=== PATIENT | male | born 1945 | race Caucasian/White ===

== ENCOUNTER → 2016-11-01 | Outpatient (CLI) | payer OTHER | LOC: MMPC 11:11 | PROVIDERS: ATTEND Internal Medicine | DX: I10 Essential (primary) hypertension (principal); C61 Malignant neoplasm of prostate; G81.91 Hemiplegia, unspecified affecting right dominant side | CPT/HCPCS: 99214; G0463 ==

== ENCOUNTER 2017-06-06 17:31 | Inpatient (IN) ==
--- NOTE | 2017-06-06 18:01 | PDOC ---
Neuro Symptoms / Deficit HPI - General Chief Complaint: Neurological Complaints Stated Complaint: weakness, "can't think" Date Seen by Provider: 06/06/17 Time Seen by Provider: 17:56 Source: POSITIVE: Patient, Other (Friend) Exam Limitations: POSITIVE: No limitations Nurse's Notes Reviewed & Considered: Yes - History of Present Illness Initial Comments: This is a 72-year-old male who presents to the emergency department with a friend with a history of worsening neurologic symptoms over the past 24-36 hours. According to his friend, the patient was "out of it" most of yesterday, but has improved today. The patient states that he has noticed some changes in his vision, and some minor increased weakness in his right leg, his friend has noticed that his speech is much more slurred than normal, and he seems to have trouble swallowing. 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 That stroke also gave him hemianopsia. No headache, no other new neurologic findings. - Patient Home Medications Home Medications: Home Medications Aspirin/Caffeine [Anacin 400-32 Mg Tablet] 2 ea PO 3-4XD #240 tab 09/05/15 Lisinopril 1 tab ORAL QD #90 tab 11/01/16 - Patient Allergies Allergies/Adverse Reactions: Allergies 3 Allergy/AdvReac Type Severity Reaction Status Date / Time No Known Drug Allergies Allergy NOT Verified 06/06/17 17:49 APPLICABLE ROS - Limitations ROS Limitations: No Limitations Constitution: DENIES: Chills, Fever Cardiovascular: DENIES: Chest Pain Respiratory: REPORTS: Denies Resp Symptoms Neurological: REPORTS: Difficulty Walking, Dysphagia, Weakness, Other ( Worsening of baseline slurred speech). DENIES: Headache, Dizziness, Seizure Activity Gastrointestinal: DENIES: Nausea, Vomitting Musculoskeletal: REPORTS: Denies MS Symptoms Genitourinary: REPORTS: Denies Symptoms Eyes: REPORTS: Vision Changes ENT: REPORTS: Denies Symptoms Neuro Symptoms / Deficit Exam - General Appearance General Appearance: POSITIVE: No Acute Distress, Alert - HEENT HEENT: POSITIVE: Eyes Inspection Nml, PERRL, Other (Patient has baseline hemianopsia, is not really able to follow my finger with his eyes due to that vision issue.). NEGATIVE: Scleral Icterus - Neuro / Psych Higher Functions: POSITIVE: Oriented to Person, Oriented to Place, Oriented to Time, Normal Cognition, Appropriate Mood, Appropriate Affect, Speech Abnormalities Cranial Nerves: POSITIVE: Dysarthria. NEGATIVE: Facial Palsy Peripheral Exam: POSITIVE: Sensation Normal, Weakness (Right sided weakness both arm and leg) - Respiratory Respiratory: POSITIVE: No Respiratory Distress, Breath Sounds Normal - Cardiovascular Cardiovascular: POSITIVE: Regular Rate & Rhythm, Heart Sounds Normal - Abdomen Additional Abdominal Details: Abdomen soft, nontender, nondistended, no organomegaly. Active bowel sounds. - Skin Skin: POSITIVE: Warm, Dry, No Rash Neuro Symptom/Deficit Progress - Results Reviewed by me CBC and BMP: 06/06/17 18:19 06/06/17 18:19 - Patient's Progress Re-Examine Time:: 21:33 (stable) Status: POSITIVE: Unchanged MDM / ED Course: Emergency room course: After initial evaluation, an IV was started, blood was drawn, and normal saline was infused. After initial lab results reviewed, a noncontrast CT was head was ordered instead of the no acute stroke protocol due to his poor kidney function. That nonconstant CT of his head revealed no acute stroke. Reviewing his previous labs, his last labs were done in 2010, and his creatinine has risen from 1.4-2.1. Due to the concerns about increased slurred speech, and swallowing difficulty, as well as the worsening kidney function, I believe the patient needs to be admitted for further evaluation treatment. This was discussed with Dr. Fabian and he will admit the patient for further evaluation treatment Patient Care Time - Estimated PCT Patient Care Time (In Minutes): 20 Vital Signs - Recent Vital Signs Vital Signs: Vital Signs (Last 8 hours) Temp Pulse Resp BP Pulse Ox 06/06/17 17:36 97.9 F 75 16 98/61 97 Discharge Clinical Impression: Altered mental status, Dehydration Discharge Disposition: Admit to Inpatient Condition: Fair Follow Up With: NETO LOPEZ [Primary Care Provider] - Date Decision to Admit to Inpatient: 06/06/17 Time Decision to Admit to Inpatient: 21:36
[2017-06-06] MEDS ORDERED: NORMAL SALINE 10 ML SYRINGE FLUSH IVP PRN (18:12)
[2017-06-06 18:23] LABS: Hematocrit [HCT] 34.3 % (42.0-52.0); Hemoglobin [HGB] 11.5 g/dL (14.0-18.0); MEAN CORPUSCULAR VOLUME 99 FL (80-90); RED BLOOD COUNT 3.47 10^6/uL (4.70-6.10)
[2017-06-06 18:24] LABS: BASOPHILS # (AUTO) 0.01 10*3/UL; BASOPHILS % (AUTO) 0.3 % (0-1); EOSINOPHILS # (AUTO) 0.09 10*3/UL; LYMPHOCYTES # (AUTO) 0.56 10*3/uL; MEAN CORPUSCULAR HEMOGLOBIN 33.1 PG (27-31); MEAN CORPUSCULAR HGB CONC 33.4 g/dL (33-37); MEAN PLATELET VOLUME 7.4 FL (7.4-12.2); MONOCYTES # (AUTO) 0.23 10*3/UL (0.3-0.8); MONOCYTES % (AUTO) 5.3 % (5-15); NEUTROPHILS # (AUTO) 3.46 10*3/UL; NEUTROPHILS % (AUTO) 79.5 % (50-80); PLATELET MORPHOLOGY COMMENT NORMAL MORPHOLOGY (NORM); RBC MORPHOLOGY COMMENT NORMAL MORPHOLOGY (NORM); WBC MORPHOLOGY COMMENT NORMAL MORPHOLOGY (NORM)
[2017-06-06 18:33] LABS: BLOOD UREA NITROGEN 36 mg/dL (7-22); BUN/CREATININE RATIO 17.14 (6-20)
[2017-06-06] MEDS ORDERED: Sodium Chloride 0.9% 1,000 ML PRIMARY IV ONE (18:48)
[2017-06-06 19:11] LABS: Erythrocyte Sediment Rate 7 MM/HR (0-15)
--- NOTE | 2017-06-06 19:44 | DI ---
CT Head WO Contrast,06/06/2017 6:02 PM: Clinical History: Possible stroke. Previous Exam: None at this facility. Findings: Multiple helically acquired CT images are obtained through the brain without contrast, and demonstrat e diffuse age-related volume loss. There is no mass, hemorrhage or midline shift. The surrounding sof t tissue and osseous structures are unremarkable. Impression: Diffuse age-related volume loss without acute intracranial pathology. Note: CT can be insensitive to stroke in the first 24 hours.
--- NOTE | 2017-06-06 21:59 | PDOC ---
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 he did mention that he fell also yesterday. He could not tell me exactly the circumstances of the fall. Evaluation in the ER revealed a creatinine of 2.1 the last creatinine he had was 2011 and was 1.4. Because of the weakness and the renal failure was admitted. Patient friends seems to give more information and sometimes he contradicts what they saying. What they said that they noticed that he's been getting weaker the last 6 weeks. Usually his friend take him to a meeting every Tuesday and he is been putting that off. They noticed that he is weaker on the right side compared to before. He uses a cane or walker at his house. Yesterday he couldn't tell me how he fell but he fell and it took him a while to get up. He denied chest pain or shortness of breath. Denied dizziness. Or lightheadedness. Past Medical History Medical History: 1. 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 2. Adenocarcinoma the prostate with history of radiation therapy March 2008 followed up by androgen ablation treatment with Lupron then. 3. Hypertension Surgical History: 1. Carpal tunnel release Family History: Reviewed an Not Pertinent Past Social History: He said he smoked many years ago, doesn't drink, no drugs. Lives here in [place] friends help him and check on him. He gets Meals on Wheels. No children of his own. Tobacco Use: Never Smoker In the Past 12 Months, Have Used or Abuse Any of the Following Substance: None Alcohol Use: None Medication / Allergies Home Medications: Home Medications Medication Instructions Recorded Confirmed Type Aspirin/Caffeine [Anacin 400-32 Mg 2 ea PO 3-4XD #240 tab 09/05/15 06/06/17 History Tablet] Lisinopril 1 tab ORAL QD #90 tab 11/01/16 06/06/17 Rx Allergies/Adverse Reactions: Allergies 3 Allergy/AdvReac Type Severity Reaction Status Date / Time No Known Drug Allergies Allergy NOT Verified 06/06/17 17:49 APPLICABLE Review of Systems - Review of Systems All Systems: Reviewed & No Additional Complaints Except as Stated Exam - General General Appearance: No Acute Distress, Cooperative - Head Head Exam: Normal Inspection - Eye Eye Exam: POSITIVE: Normal Appearance - ENT ENT Exam: POSITIVE: Mucous Membranes Dry - Neck Neck Exam: Normal Inspection - Respiratory Respiratory Exam: POSITIVE: Clear to Auscultation - Bilaterally - Cardiovascular Cardiovascular Exam: POSITIVE: RRR - GI/Abdominal GI/Abdominal Exam: POSITIVE: Normal Bowel Sounds, Non Tender, Non Distended, Soft, No Organomegaly - Rectal Rectal Exam: POSITIVE: Deferred - External Exam: POSITIVE: Deferred - Extremities Extremities Exam: POSITIVE: Normal Inspection - Back Back Exam: POSITIVE: Normal Inspection - Neurological Neurological Exam: POSITIVE: Alert, CN II-XII Intact Additional Neurological Exam Details: There is slight facial droop on the right. He had right-sided weakness. According to the friend he seems to be weaker than before. Tone seemed to be increased on the right. He's also though weaker on the left. Reflexes symmetrical. Babinski is up on the right. He was close to the day, he knew the month and close to the year he thought it was 2017. He had trouble counting backwards from 10. He said he had problem with his memory for recent events since he had the stroke but he can remember old past events. - Psychiatric Psychiatric Exam: POSITIVE: Normal Affect - Integumentary Integumentary Exam: POSITIVE: Normal Color Results - Labs CBC and BMP: 06/06/17 18:19 06/06/17 18:19 - Imaging Status: Report Reviewed by Me (CT head showed Diffuse age-related volume loss without acute intracranial pathology.) Assessment and Plan - Patient Problems (1) Renal failure Current Visit: Yes Status: Acute Comment: Not sure whether this is acute or chronic. We will give him a trial of fluid he seemed to be on the dehydrated side and will repeat labs in the morning. Will do an ultrasound of his kidneys. will check PSA Code(s): N19 - Unspecified kidney failure (2) Weakness Current Visit: Yes Status: Acute Comment: The friend thinks that he is weaker on the right side compared to what it was before. Will do an MRI of his brain. Continue aspirin. will ask PT and OT to work with him. Code(s): R53.1 - Weakness (3) Hypertension Current Visit: Yes Status: Acute Comment: He has a history of hypertension but because of the renal failure and borderline blood pressure I think we'll hold lisinopril for now give fluid repeat labs in the morning. And watch his blood pressure Code(s): I10 - Essential (primary) hypertension (4) DVT prophylaxis Current Visit: Yes Status: Acute Comment: will start him on heparin (5) Anemia Current Visit: Yes Status: Acute Comment: there is mild anemia, MCV is elvated will check B12 and folate. Code(s): D64.9 - Anemia, unspecified
[2017-06-06] MEDS ORDERED: LIDOCAINE W/ SODIUM BICARB 0.5 ML SYR SUBD PRN (22:40)
[2017-06-06] MEDS ORDERED: ONDANSETRON 4 MG/2 ML VIAL IVP PRN (22:40)
[2017-06-06] MEDS: NORMAL SALINE 10 ML SYRINGE FLUSH IVP PRN (23:04)
[2017-06-06] MEDS: Sodium Chloride 0.9% 1,000 ML PRIMARY IV SCH (23:04)
[2017-06-06] MEDS ORDERED: HEPARIN 5000 UNIT/1 ML SUBCUT SCH (23:15)
[2017-06-07] MEDS: Sodium Chloride 0.9% 500 ML PRIMARY IV SCH ×3 (07:50→14:43)
[2017-06-07 07:55] LABS: SERUM ALBUMIN 2.5 g/dL (3.5-4.8)
[2017-06-07 07:56] LABS: BLOOD UREA NITROGEN 32 mg/dL (7-22); BUN/CREATININE RATIO 18.82 (6-20)
--- NOTE | 2017-06-07 08:33 | PDOC(PROG) ---
Date and Time of Service: 06/07/2017 8:29 AM Interval History: Subjective Patient is denying new symptoms. He still failed weak. There is no cough, no pain. No shortness of breath. Objective : Data - Labs CBC and BMP: 06/07/17 07:10 06/07/17 07:10 Objective : Exam - General General Appearance: No Acute Distress, Cooperative - Head Head Exam: Normal Inspection - Eye Eye Exam: Normal Appearance - ENT ENT Exam: Normal Exam - Neck Neck Exam: Normal Inspection - Respiratory Respiratory Exam: Clear to Auscultation - Bilaterally - Cardiovascular Cardiovascular Exam: RRR - GI/Abdominal GI/Abdominal Exam: Normal Bowel Sounds, Non Tender, Non Distended, Soft - Rectal Rectal Exam: Deferred - External Exam: Deferred - Back Back Exam: Normal Inspection - Neurological Neurological Exam: Alert Additional Neurological Exam Details: Slight facial droop. Right-sided weakness unchanged. - Integumentary Additional Integumentary Exam Details: He has a scab on the right fifth toe. Assessment and Plan - Patient Problems (1) Renal failure Current Visit: Yes Status: Acute Comment: As I said last night it is not clear whether this is acute or chronic we'll continue with hydration his creatinine is better at 1.7. However his blood pressure is lower today. We gave him a bolus of fluid will do a blood culture and start antibiotics. Code(s): N19 - Unspecified kidney failure (2) Weakness Current Visit: Yes Status: Acute Comment: Probably multifactorial. He will have a an MRI to complete the workup. Code(s): R53.1 - Weakness (3) Hypertension Current Visit: Yes Status: Acute Comment: Continue holding his lisinopril. Code(s): I10 - Essential (primary) hypertension (4) DVT prophylaxis Current Visit: Yes Status: Acute Comment: We put him on heparin (5) Anemia Current Visit: Yes Status: Acute Comment: We did send for ferritin and B12 folate Code(s): D64.9 - Anemia, unspecified (6) Hypotension Current Visit: Yes Status: Acute Comment: Blood pressure dropped this morning. We'll give him fluid boluses will continue holding the lisinopril. Will do a blood culture UA was ordered but he did not give a sample yet and will start him with antibiotics I did a chest x-ray and I don't see clear-cut infiltrate we will see what the radiologist thinks. We'll start him on antibiotics until we have culture result Code(s): I95.9 - Hypotension, unspecified
[2017-06-07 08:47] LABS: BASOPHILS % (AUTO) 0.3 % (0-1); EOSINOPHILS % (AUTO) 6.5 % (0-8); Hematocrit [HCT] 29.1 % (42.0-52.0); Hemoglobin [HGB] 9.6 g/dL (14.0-18.0); MEAN CORPUSCULAR HEMOGLOBIN 32.6 PG (27-31); MEAN CORPUSCULAR VOLUME 99 FL (80-90); MEAN PLATELET VOLUME 7.6 FL (7.4-12.2); MONOCYTES % (AUTO) 8.2 % (5-15); NEUTROPHILS % (AUTO) 55.8 % (50-80); RED BLOOD COUNT 2.94 10^6/uL (4.70-6.10)
[2017-06-07 08:48] LABS: BASOPHILS # (AUTO) 0.01 10*3/UL; EOSINOPHILS # (AUTO) 0.16 10*3/UL; LYMPHOCYTES # (AUTO) 0.72 10*3/uL; NEUTROPHILS # (AUTO) 1.38 10*3/UL; PLATELET MORPHOLOGY COMMENT NORMAL MORPHOLOGY (NORM); RBC MORPHOLOGY COMMENT NORMAL MORPHOLOGY (NORM); WBC MORPHOLOGY COMMENT NORMAL MORPHOLOGY (NORM)
[2017-06-07] MEDS: Meropenem Inj 1 GM in Sodium Chloride 0.9% 100 ML IV SCH ×2 (09:04→21:13)
[2017-06-07] MEDS: Sodium Chloride 0.9% 1,000 ML PRIMARY IV SCH ×2 (09:05→17:11)
[2017-06-07] MEDS: Potassium Chloride Tab 10 MEQ TAB PO SCH ×2 (09:58→21:13)
[2017-06-07] MEDS: ASPIRIN 325 MG EC TABLET PO SCH (09:59)
[2017-06-07] MEDS: Multivitamin Tab 1 TAB PO SCH (09:59)
[2017-06-07] MEDS: HEPARIN 5000 UNIT/1 ML SUBCUT SCH ×2 (10:04→16:44)
[2017-06-07 10:26] LABS: BILIRUBIN,URINE NEGATIVE (NEG); CLARITY,URINE CLEAR (CLEAR); COLOR,URINE YELLOW (Y); GLUCOSE, URINE (UA) NEGATIVE (NEG); NITRATE,URINE NEGATIVE (NEG); OCCULT BLOOD,URINE MODERATE (NEG); PROTEIN,URINE NEGATIVE (NEG); UROBILINOGEN,URINE 0.2 EU/dL (0.2)
[2017-06-07 10:35] LABS: RBC,URINE 20-30 /hpf; URINE SAMPLE TYPE CLEAN CATCH URINE; WBC,URINE 0-1
--- NOTE | 2017-06-07 17:07 | OT.PROG ---
Progress Note Progress Note: S: pt stated he would like some shorts, he reported that his stroke happened about 20 yrs ago. O: pt was seen in his room and completed LE dressing with mod Ind as it just took him longer to complete due to decrease function of R side. He then stood and completed transfer to w/c approx 5 ft with CGa for safety. He transferred downstairs in w/c and completed 5 1/2 min on arm bike with using BUE's half of time and only L the other half. He then transferred back to w/ with cGA and copleted exercises with RTB in rows, shoulder ext, bicep flex, and hor abd x15 with BUE's. PT took over treatment at this point. A: pt's uses his R affected arm as much as he can but is still limited by strength and ROM. Pt may continue to benefit from therapy to increase overall activity tolerance during transfers. P: continue per pOC.
--- NOTE | 2017-06-07 17:38 | PT.PROG ---
Progress Note Progress Note: Thank you for the referral of PTNhan Pelayo was seen on 06/07/2017 following a fall due to elevated weakness the pt. has been experiencing. SUBJECTIVE: The pt. is a 72 y/o male who lives at home alone in his single story home. The pt. states he suffered a CVA 20 years ago but was able to manage his symptoms of R sided weakness and visual issues. The pt. stated his balance was on the decline prior to his fall and that he used a gayle-walker and cane at home. The goals are to return home with as much function as possible. PAST MEDICAL HISTORY: Relevant PMH for the pt. include: weakness, renal issues, and previous CVA. OBJECTIVE FINDINGS: The pt. is alert and oriented to setting upon PT arrival. The pt. sitting upright in his wheelchair as he finished OT. The pt. agreed to therapy and had his IV in. The pt. presents with poor kyphotic posturing and is slumps forward while sitting. Pt. reports inabiity to see on the R field in both eyes. Ocular tracking is limited and slow, but pt. can follow PT finger. No axatia noted with finger to nose test, although pain in L extremity was noted. Pt. was able to follow simple 2 step commands. No issues with understands or expression noted. The pt. is able to stand with contact guard using his 4 point cane. The pt. was able to AMB 20 ft. with contact quard. The pt. has flexor synergy and increased tone on the R arm, PROM is limited due to increased tone and AROM is severely limited. The use in the R UE is minimal, the pt. can use it to balance with his walker. R leg also has increased tone, but limb is usable. MMT of the R limb is 4/5 in all movements. L UE is weak, but functional. PROM is WNL and AROM is limited in flexion and abduction. Pain was experienced as pt. raised his arm. ASSESSMENT: The pt. presents with decreased function on his R side from a stroke the pt. suffered 20 years ago. Pt. was able to manage with persistent symptomes from the stroke for 20 years. The pt. has issues with R sided weakness and pain in his L shoulder. The reason for the fall was unclear, but the pt's balance was on the decline prior to admittance to the hospital. The pt. has fair rehab potential due to his previous stroke symptoms and his lack of support. However, he does currently AMB and transfer well for his situation. The pt. will benefit from skilled therapy to increase function/ROM/strength s and generalized strength and balance activity to help the pt. thrive. Problem List: 1. Weakness (especially in the R) 2. Decreased Function 3. Pain 4. Visual deficits 5. Lack of support. Short-term Goals: 1. The pt. will be independent with bed mobility and transfers prior to discharge. 2. The pt. will be fit with and become accustomed to least restrictive assistive device. Long-term Goals: The pt. will be able to AMB 500ft. with proper assistive device. Treatment Plan: The pt. will be seen BID during the week and once a day on the weekends until discharge. Inpatient Initial Eval: The initial evaluation was completed followed by AMB with gayle-walker. Respectfully Submitted, Eliseo Dahl, VON Daniel PT [facility] [address], [facility]
--- NOTE | 2017-06-07 18:27 | DI ---
XR CXR 1VW,06/07/2017 7:35 AM: Clinical History: Shortness of breath. Previous Exam: None at this facility. Findings: A single frontal radiograph of the chest is obtained, and demonstrate clear lungs. The cardiomediasti num and bony thorax are unremarkable. Overlying EKG leads are seen. Impression: No acute cardiopulmonary disease.
--- NOTE | 2017-06-07 20:14 | DI ---
US Retroperitoneum,06/07/2017 8:00 AM: Clinical History: Renal failure. Previous Exam: CT abdomen pelvis performed November 23, 2007 Findings: Multiple grayscale and color Doppler sonographic images are obtained through the retroperitoneum, and demonstrate a normal-appearing right kidney measuring 9.8 cm in length without hydronephrosis nor ne phrolithiasis. There are multiple simple renal cyst noted the largest measures 6.4 cm in diameter. The left kidney measures 10.5 cm in length also without hydronephrosis. The left kidney contains a few parenchymal calcifications. The urinary bladder measured a volume of 175 cc. Both ureteral jets were identified. Impression: No obstructive uropathy.
--- NOTE | 2017-06-07 20:47 | DI ---
MRI Brain WO Contrast,06/07/2017 8:00 AM: Clinical History: Worsening right-sided weakness. Previous Exam: CT head performed June 06, 2017 Findings: Multiplanar MR images are obtained through the brain without contrast, and demonstrates diffuse age-r elated volume loss with enlarged lateral ventricles. There is no abnormally restricted diffusion. There are a few areas of increased T2 and FLAIR signal throughout the subcortical white matter. There is no mass, hemorrhage or midline shift. Intraorbital structures and paranasal sinuses are unremarkable. Impression: No acute intracranial pathology.
[2017-06-08] MEDS: HEPARIN 5000 UNIT/1 ML SUBCUT SCH ×3 (00:12→17:49)
[2017-06-08] MEDS: Sodium Chloride 0.9% 1,000 ML PRIMARY IV SCH ×4 (00:14→09:06)
[2017-06-08 06:50] LABS: BLOOD UREA NITROGEN 27 mg/dL (7-22); RED BLOOD COUNT 2.89 10^6/uL (4.70-6.10)
[2017-06-08 06:51] LABS: BAND NEUTROPHILS % 1 % (0-10); Hemoglobin [HGB] 9.3 g/dL (14.0-18.0); MEAN CORPUSCULAR HEMOGLOBIN 32.2 PG (27-31); MEAN CORPUSCULAR HGB CONC 32.1 g/dL (33-37); MEAN CORPUSCULAR VOLUME 100.3 FL (80-90); NEUTROPHILS % (MANUAL) 51 % (50-80); PLATELET MORPHOLOGY COMMENT NORMAL MORPHOLOGY (NORM); RBC MORPHOLOGY COMMENT NORMAL MORPHOLOGY (NORM); WBC MORPHOLOGY COMMENT NORMAL MORPHOLOGY (NORM)
[2017-06-08 06:52] LABS: BASOPHILS % (MANUAL) 2 % (0-1); EOSINOPHILS % (MANUAL) 3 % (0-8); MONOCYTES % (MANUAL) 9 % (0-12)
--- NOTE | 2017-06-08 08:16 | PDOC(PROG) ---
Date and Time of Service: 06/08/2017 8:11 AM Interval History: Subjective He feels better, still weak though, denying new symptoms. Objective : Data - Labs CBC and BMP: 06/08/17 06:13 06/08/17 06:13 Objective : Exam - General General Appearance: No Acute Distress, Cooperative - Head Head Exam: Normal Inspection - Eye Eye Exam: Normal Appearance - ENT ENT Exam: Normal Exam - Neck Neck Exam: Normal Inspection - Respiratory Respiratory Exam: Clear to Auscultation - Bilaterally - Cardiovascular Cardiovascular Exam: RRR - GI/Abdominal GI/Abdominal Exam: Normal Bowel Sounds, Non Tender, Non Distended, Soft, No Organomegaly - Rectal Rectal Exam: Deferred - External Exam: Deferred - Extremities Extremities Exam: Normal Inspection - Back Back Exam: Normal Inspection - Neurological Neurological Exam: Alert, CN II-XII Intact, Speech Intact / Clear Additional Neurological Exam Details: *Right-sided weakness she is old. He seems to be generally weak. As the left side is also weak. - Psychiatric Psychiatric Exam: Normal Affect Assessment and Plan - Patient Problems (1) Renal failure Current Visit: Yes Status: Acute Comment: hard to say whether this is acute or chronic. May be chronic. I think we'll start cutting back on his fluid and see whether we can take him off the fluid. Code(s): N19 - Unspecified kidney failure (2) Weakness Current Visit: Yes Status: Acute Comment: Continue PT and OT Code(s): R53.1 - Weakness (3) Hypertension Current Visit: Yes Status: Acute Comment: His blood pressure is on the lower side so we are holding his lisinopril. Code(s): I10 - Essential (primary) hypertension (4) DVT prophylaxis Current Visit: Yes Status: Acute Comment: He is on heparin (5) Anemia Current Visit: Yes Status: Acute Comment: Both B12 and folate are normal. He has leukopenia and anemia maybe has a bone marrow disorder this need to be looked at later on as an outpatient if it persist. Code(s): D64.9 - Anemia, unspecified (6) Hypotension Current Visit: Yes Status: Acute Comment: Blood pressure stable. Reason is unclear. I think we'll start cutting back on his fluid as his blood pressure seem to be improving. We did start him on antibiotics continue until we have culture results Code(s): I95.9 - Hypotension, unspecified (7) Normal anion gap metabolic acidosis Current Visit: Yes Status: Acute Comment: This may be secondary to renal failure or renal tubular acidosis. Will put him on sodium bicarbonate. Code(s): E87.2 - Acidosis
[2017-06-08] MEDS: Meropenem Inj 1 GM in Sodium Chloride 0.9% 100 ML IV SCH ×2 (09:04→20:26)
[2017-06-08] MEDS: Multivitamin Tab 1 TAB PO SCH (09:05)
[2017-06-08] MEDS: ASPIRIN 325 MG EC TABLET PO SCH (09:05)
[2017-06-08] MEDS: Sodium Bicarbonate Tab 650 MG TAB PO SCH ×2 (09:05→20:28)
[2017-06-08] MEDS: Potassium Chloride Tab 10 MEQ TAB PO SCH ×2 (09:05→20:28)
--- NOTE | 2017-06-08 11:38 | OT.PROG ---
Progress Note Progress Note: S: pt states that he wants to return home and feels he is capable of caring for himself. O: pt was seen in his room and completed ADL's. He completed LE dressing with mod INd as it took him longer to complete. He also donned and tied both shoes with MOd Ind as once again it took him longer to completed. He completed x3 sit to stands before transferring to w/c. He completed only 1 with min A. He transferred to W/c with CGA for safety approx 5ft. PT transferred him to therapy. A: pt may continue to benefit from therapy to increase his activity tolerance. He appears to be able to complete most ADL's Ind, only that it takes him longer to complete. He may benefit from 24 hr care, but don't believe pt will agree to that. P: continue per POC.
--- NOTE | 2017-06-08 15:10 | PT.PROG ---
Progress Note Progress Note: S: Pt. states he is feeling well this morning, as he slept well last night. O: Pt. transferred with MOMO to wheelchair and was moved to the rehab center where he completed therapeutic activity. Exercises included 2 sets of AMB with contact guard for 20 ft., arm bike 3 min, theraband rows, theraband core rotations, standing high knees marching, LAQs, hamstring curls, and hip abductions. A: Pt. can consistently transfer and AMB with contact guard. He is relatively proficient with his gayle-walker. As pt. fatigued he required increased assistance of MOMO. The pt. will benefit from continued therapy to improve balance and function. P: Continue POC Eliseo Dahl, SPT Abel Daniel, PT
--- NOTE | 2017-06-08 17:14 | OT.PROG ---
Progress Note Progress Note: S: pt states that he wants to return home and thinks he is able to care for himself. O: pt was seen in therapy gym this afternoon and completed Ue exercises with BTB in all planes x15. He completed as much as he could with his RUE. He then was seen in his room and completed MOCA. He scored a 2/5 on visuospatail, naming 3/3, attention1/6, language 0/3, abstraction 1/2, delayed recall 0/5, and orientation 2/6, for a total of 9/30. His score places him in severe cognitive impairment. A: due to being late in day, it may be beneficial to attempt MOCA tomorrow in the a.m. to compare scores. Continue to address ADLS'. P: continue Per POC.
--- NOTE | 2017-06-08 17:38 | PT.PROG ---
Progress Note Progress Note: S: Pt. stated he was slightly sore from this mornings session, nothing major. He also complained of knee soreness. O: Pt. transferred from bathroom to wheel chair with contact guard. In the rehab center the pt. completed heat on his knees, followed by an upper body theraband circuit, bridges, banded clamshells, SLRs, ankle pumps, short arc quads, and theraball diagonals. Pt. then transferred back to wheelchair and was returned to his room. A: Pt. was sore from this mornings treatment, where he completed high level of activity. Pt. said his knee felt better after heat. Pt. had minor fatigue, but knew how important exercise was. Pt. tolerated ther ex very well and his transfers are improving. He transfers with contact guard consistently. P: Continue POC. Eliseo Dahl, SPT Abel Daniel, PT
[2017-06-09] MEDS: HEPARIN 5000 UNIT/1 ML SUBCUT SCH ×3 (02:06→16:53)
[2017-06-09 07:53] LABS: BLOOD UREA NITROGEN 22 mg/dL (7-22); BUN/CREATININE RATIO 13.75 (6-20)
[2017-06-09 08:10] LABS: Hematocrit [HCT] 28.7 % (42.0-52.0); Hemoglobin [HGB] 9.5 g/dL (14.0-18.0); MEAN CORPUSCULAR HEMOGLOBIN 32.1 PG (27-31); MEAN CORPUSCULAR HGB CONC 33.1 g/dL (33-37); MEAN CORPUSCULAR VOLUME 97 FL (80-90); RED BLOOD COUNT 2.94 10^6/uL (4.70-6.10)
[2017-06-09 08:11] LABS: MEAN PLATELET VOLUME 7.7 FL (7.4-12.2); PLATELET MORPHOLOGY COMMENT SEE COMMENTS (NORM); WBC MORPHOLOGY COMMENT NORMAL MORPHOLOGY (NORM)
[2017-06-09 08:12] LABS: RBC MORPHOLOGY COMMENT SEE COMMENTS (NORM)
[2017-06-09 08:31] LABS: BAND NEUTROPHILS % 4 % (0-10); NEUTROPHILS % (MANUAL) 54 % (50-80)
[2017-06-09 08:32] LABS: BASOPHILS % (MANUAL) 2 % (0-1); EOSINOPHILS % (MANUAL) 0 % (0-8); MONOCYTES % (MANUAL) 7 % (0-12)
[2017-06-09] MEDS: Sodium Bicarbonate Tab 650 MG TAB PO SCH ×2 (09:16→20:37)
[2017-06-09] MEDS: Multivitamin Tab 1 TAB PO SCH (09:16)
[2017-06-09] MEDS: ASPIRIN 325 MG EC TABLET PO SCH (09:16)
[2017-06-09] MEDS: Meropenem Inj 1 GM in Sodium Chloride 0.9% 100 ML IV SCH ×2 (09:16→20:37)
[2017-06-09] MEDS: Potassium Chloride Tab 10 MEQ TAB PO SCH ×2 (09:16→09:37)
--- NOTE | 2017-06-09 09:43 | PDOC(PROG) ---
Date and Time of Service: 06/09/2017 9:44 AM Interval History: Subjective He is somewhat getting stronger he is denying other complain. He is working with physical therapy. Objective : Data - Labs CBC and BMP: 06/09/17 07:36 06/09/17 07:36 Objective : Exam - General General Appearance: No Acute Distress, Cooperative - Head Head Exam: Normal Inspection - Eye Eye Exam: Normal Appearance - ENT ENT Exam: Normal Exam - Neck Neck Exam: Normal Inspection - Respiratory Respiratory Exam: Clear to Auscultation - Bilaterally - Cardiovascular Cardiovascular Exam: RRR - GI/Abdominal GI/Abdominal Exam: Normal Bowel Sounds, Non Tender, Non Distended, Soft - Rectal Rectal Exam: Deferred - External Exam: Deferred - Extremities Extremities Exam: Normal Inspection - Back Back Exam: Normal Inspection - Neurological Neurological Exam: Alert Additional Neurological Exam Details: I think he is getting stronger strength is better on the left side he still weak on the right side this is from his old stroke. He knew the day but did not know the month or the year. - Psychiatric Psychiatric Exam: Normal Affect - Integumentary Integumentary Exam: Normal Color Assessment and Plan - Patient Problems (1) Renal failure Current Visit: Yes Status: Acute Comment: I'm inclining to think his is more like a chronic renal failure. We put him on sodium bicarbonate because of his anion gap metabolic acidosis. We DC the fluid. Code(s): N19 - Unspecified kidney failure (2) Weakness Current Visit: Yes Status: Acute Comment: Continue PT and OT. We are waiting for the mental evaluation him I think has some dementia Code(s): R53.1 - Weakness (3) Hypertension Current Visit: Yes Status: Acute Comment: Continue holding lisinopril Code(s): I10 - Essential (primary) hypertension (4) DVT prophylaxis Current Visit: Yes Status: Acute Comment: He is on heparin (5) Anemia Current Visit: Yes Status: Acute Comment: There is anemia and leukopenia may have some bone marrow disorder. He is on multivitamin this need to be investigated later on as an outpatient. Code(s): D64.9 - Anemia, unspecified (6) Hypotension Current Visit: Yes Status: Acute Comment: This is seem to be resolved. We DC'd his fluid continue antibiotics I think for 5 days and then will stop it Code(s): I95.9 - Hypotension, unspecified (7) Normal anion gap metabolic acidosis Current Visit: Yes Status: Acute Comment: We put him on sodium bicarbonate I suspect this is maybe secondary to renal failure. Code(s): E87.2 - Acidosis
--- NOTE | 2017-06-09 11:40 | OTI REPORT ---
Thank you for the referral of Quinton Pelayo. He was seen on 06/07/17 for an occupational therapy inpatient evaluation secondary to weakness. SUBJECTIVE: The patient is a 72-year-old male who is being seen secondary to being dehydrated. He says he hasn't been feeling good the last couple of weeks and is having increased difficulty taking care of himself. Prior to getting sick, the patient states he typically did everything for himself including meal prep, dressing himself, and completing all of his activities of daily living. The patient does not get assistance from anywhere and typically in the summer he drives a tricycle motorcycle and is pretty independent. The patient knows that he has lost quite a bit of weight; he thinks he has lost approximately 30 lbs in the last six months and he has been declining in function. The patient's goal is to go back home and to try to be as independent as possible. The patient is very weak today; he states that he typically moves around a lot better, but just feels weak from being sick. PAST MEDICAL HISTORY: Past medical history can be found in the patient's medical record. OBJECTIVE FINDINGS: Bed mobility: The patient was able to come from supine to sit independently. Range of motion: While sitting edge of bed his range of motion was observed. IN the right upper extremity he only has 0 to 20 degrees of shoulder flexion. In the left upper extremity he has 0 to 80 degrees of shoulder flexion. He says that his left shoulder used to have full active range of motion, but at this point in time he has having increased difficulties. Elbow flexion/ extension on the right is 0 to 30 degrees. His hands do assist with helping; however, there is some contraction and some spasticity in those hands. He is able to do some gross grasp, but has difficulty with fine motor manipulation in the hand. Strength: Strength in the right shoulder is 1+/5, elbow flexion is 2/5, and set up mold technician strength is 3/5. In the left upper extremity his strength is very limited. He more than likely has a rotator cuff teat. He was positive with the empty can test and just resistance against gravity. Strength for shoulder flexion was 2+/5, shoulder extension was 3/5, elbow flexion/extension was 4/5, and wrist flexion/extension was 4/5. Activities of daily living: The patient needs mod assist for upper extremity dressing and lower extremity dressing. Transfers: The patient is using a gayle walker for ambulation but he is using both hands on the gayle walker. He requires min assist for balance and cues. ASSESSMENT: Problem List: Decreased ability to perform ADLs Generalized weakness Decreased ability to perform functional transfers Short-Term Goals: To be met by discharge from inpatient: Patient will improve upper extremity strength on the left side to 4/5 for shoulder and 4+/5 for elbow flexion/extension and wrist flexion/extension. Patient will increase hand, wrist, and elbow strength on the right side. The shoulder is going to be difficult to rehab at this point in time. Patient will be able to dress self independently. Patient will be able to complete a shower transfer and all showering tasks with stand by assistance. Patient will perform a cognitive test to see how he is doing in order to care for himself at home. Long-Term Goals: To be met following discharge from inpatient: Patient will return home, demonstrating safety and independence with all functional activities and ADLs. TREATMENT PLAN: Patient will be seen B.I.D during the week and one time per day over the weekend as an inpatient to address the above goals and objectives. INITIAL TREATMENT: Treatment today consisted of the initial evaluation followed by the patient coming from supine to sit. While sitting edge of bed he performed some mobility and range of motion activities x12 minutes. The patient then transferred with the gayle walker to his chair. We worked on some lower extremity dressing; the patient needed mod assist for this. If the patient's physical abilities improve, we may need to look at more assistance options for this patient as well as a possible home evaluation to make sure that he is safe and able to take care of himself and able to complete functional transfers including showering and toileting. KASSANDRA
--- NOTE | 2017-06-09 13:40 | OT.PROG ---
Progress Note Progress Note: S: pt stated that he still did not understand the cirlce test last night ( meaning the trail making task of MOCa). He reported that he does not feel as tired and is willing to try test again. O: pt was seen in his room and completed the MOCA a second time. He completed visuospatial/executive 4/5, naming 2/3, attention 0/6, language 0/3, abstraction 2/2, delayed recall 0/5, oreintation 3/6 for a total of 06/09. pt was also seen for ADL dressing with was completed LE dressing/ shoes with MOd Ind as it takes him longer to complete. He was transferred downstairs for therapy in w/c. A: pt's overall score was just slightly better but still puts him in a High moderate impairment category. Pt may benefit from 24 hr care, but not sure if he would agree to that. He may have possibility to live with brother in [place]. P: continue per POC.
--- NOTE | 2017-06-09 16:34 | PT.PROG ---
Progress Note Progress Note: S. Patient stated that he would go to therapy this afternoon. Patient reports that his back is hurting him this afternoon. O. Patient was wheeled to the therapy gym where he used the nu-step x 8 minutes , then performed seated exercises in the form of; long arc quads, heel toe raises, marches all x 15 bilaterally. sit to stands x 10, Patient had heat to his back x 15 minutes. Patient ambulated 75 feet then was wheeled back to his room where he was left in his chair with alarm and call light. A. Patient tolerated therapy fair, he continues to struggle with balance, He requires min assist with transfers and ambulation. Patient would continue to benefit from skilled therapy at this time. P. Continue POC.
--- NOTE | 2017-06-09 17:59 | OT.PROG ---
Progress Note Progress Note: S: pt states that he thinks he may be going to live with his brother in [place] now. He reports feeling really weak. O: pt was seen in his room and completed ADL activity with LE's with mod Ind and UE shirt he needed min A to complete. He transferred 6 ft to w/c and was transferred downstairs for therapy. He completed 8 min on Ue arm bike to increase activity tolerance. He then transferred to wall brandon's and completed brandon's with 2k in all ranges even with R affected side. He transferred again to mat table where he recieved moist heat to back while completing OT. A: pt displayed difficulty with donning of UE shirt today and may want to continue to monitor this ADL activity. He did display increase activity tolerance and will continue to work on this area for skilled therapy. P: continue per POC.
[2017-06-10] MEDS: HEPARIN 5000 UNIT/1 ML SUBCUT SCH ×3 (00:11→16:42)
[2017-06-10] MEDS: Meropenem Inj 1 GM in Sodium Chloride 0.9% 100 ML IV SCH ×2 (08:19→20:38)
[2017-06-10] MEDS: Multivitamin Tab 1 TAB PO SCH (08:21)
[2017-06-10] MEDS: Sodium Bicarbonate Tab 650 MG TAB PO SCH ×2 (08:21→20:38)
[2017-06-10] MEDS: ASPIRIN 325 MG EC TABLET PO SCH (08:21)
--- NOTE | 2017-06-10 09:09 | PDOC(PROG) ---
Date and Time of Service: 06/10/2017 9 AM Interval History: Subjective Patient denying new symptoms. No pain, no shortness of breath, no cough. Objective : Data - Labs CBC and BMP: 06/09/17 07:36 06/09/17 07:36 Objective : Exam - General General Appearance: No Acute Distress, Cooperative - Head Head Exam: Normal Inspection - Eye Eye Exam: Normal Appearance - ENT ENT Exam: Normal Exam - Neck Neck Exam: Normal Inspection - Respiratory Respiratory Exam: Clear to Auscultation - Bilaterally - Cardiovascular Cardiovascular Exam: RRR - GI/Abdominal GI/Abdominal Exam: Normal Bowel Sounds, Non Tender, Non Distended, Soft - Rectal Rectal Exam: Deferred - External Exam: Deferred - Extremities Extremities Exam: Normal Inspection - Back Back Exam: Normal Inspection - Neurological Neurological Exam: Alert Additional Neurological Exam Details: Still weak on the right side compared to the left. This is old. - Psychiatric Psychiatric Exam: Normal Affect - Integumentary Integumentary Exam: Normal Color Assessment and Plan - Patient Problems (1) Renal failure Current Visit: Yes Status: Acute Comment: Suspect this is probably chronic. Will repeat his labs tomorrow. Code(s): N19 - Unspecified kidney failure (2) Weakness Current Visit: Yes Status: Acute Comment: Continue PT and OT. He has some dementia also, I spoke with the materials planner/production planner about where to go from here she was trying to reach his brother and then will decide whether he can go with his brother or he may need to go to a custodial as he is not safe to go home yet. Code(s): R53.1 - Weakness (3) Hypertension Current Visit: Yes Status: Acute Comment: The blood pressure remained acceptable we are still holding his lisinopril. Code(s): I10 - Essential (primary) hypertension (4) DVT prophylaxis Current Visit: Yes Status: Acute Comment: He is on heparin (5) Anemia Current Visit: Yes Status: Acute Comment: There is anemia and leukopenia on the CBC he'll have a another repeat tomorrow. He may have a bone marrow disorder this need to be followed up as an outpatient Code(s): D64.9 - Anemia, unspecified (6) Hypotension Current Visit: Yes Status: Acute Comment: Probably from dehydration I thought and maybe also medication as he was on lisinopril and it doesn't seem that he needed it so far. Whether there was an infection it's not clear so far the culture are negative but because as his low white count I will continue the antibiotic I think we'll see what his white count tomorrow if things are stable and blood culture remain negative may be consider stopping the antibiotics Code(s): I95.9 - Hypotension, unspecified (7) Normal anion gap metabolic acidosis Current Visit: Yes Status: Acute Comment: we Put him on sodium bicarbonate Code(s): E87.2 - Acidosis
--- NOTE | 2017-06-10 12:04 | OT.PROG ---
Progress Note Progress Note: S: pt states he has not talked to his brother about living with him. O: pt was seen in his room in the a.m. for ADL's. He completed Le dressing, shorts and shoes with mod Ind as it takes him longer to complete. Therapy did witness him aubrie one sock with Mod Ind as well. He did much better today with Ue shirt as he completed with Mod Ind. Sit to stand completed with Min A and completed functional transfer approx 30 ft to w/c. He then was transferred downstairs to therapy completing 8 in on arm bike to increase activity tolerance. A: pt may continue to benefit from skilled therapy to increase his level of function and activity tolerance for daily tasks. He still remains a fall risk at this time. May benefit from 24 hr care. P: continue per POC.
--- NOTE | 2017-06-10 17:13 | PT.PROG ---
Progress Note Progress Note: S. Patient stated that he is feeling good this afternoon. O. Patient ambulated 175 feet to the therapy gym where he performed seated exercises in the form of; long arc quads, heel toe raises, marches, ball squeezes, resisted knee flexion, clam shells, sit to stands all x15. Patient was fitted for an AFO and walker with wheels then ambulated 175 feet back to his room He was left in chair with alarm and call light. A. Patient tolerated therapy fair, he continues to require CGA with transfers and ambulation. Patient was able to ambulate further with a wheeled walker compared to his gayle walker. He would continue to benefit from skilled therapy at this time. P. Continue POC.
--- NOTE | 2017-06-10 17:16 | OT.PROG ---
Progress Note Progress Note: S: pt stated that he was tired but willing to participate in therapy. O: pt was seen in his room and was willing to try ambulating with walker. He completed entire transfer downstairs with walker and 0 breaks. He completed 10 min on Nu step to continue to increase his activity tolerance. HE then completed UE exercises with GTB in all planes with L and and what he could with UE R. He was returned after PT completed fitting of AFO. A: pt may continue to benefit from therapy to increase his activity tolerance with walker. Continue to monitor his ADL's. P: continue per POC.
--- NOTE | 2017-06-10 17:19 | PT.PROG ---
Progress Note Progress Note: S: Pt. said he was very tired from his shower this morning, but he felt much better after it. O: Pt. completed arm bike for 5 min, walked to bed for exercises with SBA. Ther ex completed were: seated LAQ, marches (3#), sit to stands, SLR, SAQ, hip abd/ add, and bridges. Pt. then walked 150 ft. from bed to elevator with SBA. A: Pt. tolerated exercise very well today. He experienced increased fatigue from his shower, but looked and moved very well. Endurance is improving and less assistance is needed throughout transfers. Pt. will benefit from continued therapy at this time to ensure independence prior to discharge. P: Continue POC. Eliseo Dahl, SPT Abel Daniel, PT
[2017-06-10] MEDS: NORMAL SALINE 10 ML SYRINGE FLUSH IVP PRN (20:40)
[2017-06-11] MEDS: HEPARIN 5000 UNIT/1 ML SUBCUT SCH ×3 (00:07→17:33)
[2017-06-11 06:39] LABS: BLOOD UREA NITROGEN 19 mg/dL (7-22); BUN/CREATININE RATIO 17.27 (6-20)
[2017-06-11 07:07] LABS: BASOPHILS % (AUTO) 0.4 % (0-1); EOSINOPHILS % (AUTO) 6.5 % (0-8); Hematocrit [HCT] 28.2 % (42.0-52.0); Hemoglobin [HGB] 9.4 g/dL (14.0-18.0); LYMPHOCYTES # (AUTO) 0.81 10*3/uL; MEAN CORPUSCULAR HEMOGLOBIN 32.5 PG (27-31); MEAN CORPUSCULAR HGB CONC 33.4 g/dL (33-37); MEAN CORPUSCULAR VOLUME 97 FL (80-90); MEAN PLATELET VOLUME 7.7 FL (7.4-12.2); MONOCYTES # (AUTO) 0.37 10*3/UL (0.3-0.8); MONOCYTES % (AUTO) 10.7 % (5-15); NEUTROPHILS # (AUTO) 2.06 10*3/UL; NEUTROPHILS % (AUTO) 59.1 % (50-80); RED BLOOD COUNT 2.89 10^6/uL (4.70-6.10)
[2017-06-11 07:08] LABS: BASOPHILS # (AUTO) 0.01 10*3/UL; EOSINOPHILS # (AUTO) 0.23 10*3/UL; PLATELET MORPHOLOGY COMMENT NORMAL MORPHOLOGY (NORM); RBC MORPHOLOGY COMMENT SEE COMMENTS (NORM); WBC MORPHOLOGY COMMENT NORMAL MORPHOLOGY (NORM)
[2017-06-11] MEDS: Meropenem Inj 1 GM in Sodium Chloride 0.9% 100 ML IV SCH (08:00)
[2017-06-11] MEDS: Multivitamin Tab 1 TAB PO SCH (08:00)
[2017-06-11] MEDS: Sodium Bicarbonate Tab 650 MG TAB PO SCH ×2 (08:00→20:17)
[2017-06-11] MEDS: ASPIRIN 325 MG EC TABLET PO SCH (08:00)
--- NOTE | 2017-06-11 11:22 | PDOC(PROG) ---
Interval History: Patient is doing well he has no complaints no chest pain no nausea no vomiting he is awake and alert to person and place. Objective : Data - Labs CBC and BMP: 06/11/17 06:05 06/11/17 06:05 Objective : Exam - General General Appearance: Cooperative - Head Head Exam: Normal Inspection - Eye Eye Exam: Normal Appearance, PERRL, EOMI, No Scleral Icterus - Respiratory Respiratory Exam: Clear to Auscultation - Bilaterally, Breathing Non Labored, Normal To Percussion, Normal to Percussion and Palpation - Cardiovascular Cardiovascular Exam: RRR, No Murmur, No Clicks, No Gallops, No Rubs, PMI Non- Displaced - GI/Abdominal GI/Abdominal Exam: Normal Bowel Sounds, Non Tender, Non Distended, Soft, No Masses, No Hepatomegaly, No Splenomegaly, No Organomegaly - Extremities Extremities Exam: No Clubbing Present, No Edema Present Assessment and Plan - Patient Problems (1) Renal failure Current Visit: Yes Status: Acute Comment: Most likely prerenal patient was rehydrated now BUN and creatinine within normal limits Code(s): N19 - Unspecified kidney failure (2) Weakness Current Visit: Yes Status: Acute Comment: Generalized weakness patient lives at home alone he has had a stroke 20 years ago most likely some dementia is also starting new MRI and CAT scan of his head revealed no new stroke Code(s): R53.1 - Weakness (3) Hypertension Current Visit: Yes Status: Acute Comment: Stable at present time hold off on lisinopril Code(s): I10 - Essential (primary) hypertension (4) DVT prophylaxis Current Visit: Yes Status: Acute (5) Anemia Current Visit: Yes Status: Acute Comment: Could be multifactorial labs were drawn and send out this could also represent bone marrow dysfunction with low WBCs and anemia with probably need a referral to hematology as an outpatient if patient desires to do so Code(s): D64.9 - Anemia, unspecified (6) Hypotension Current Visit: Yes Status: Resolved Code(s): I95.9 - Hypotension, unspecified - Assessment / Plan Additional Assessment/Plan Details: Most likely after first speaking to nursing services working on skilled nursing placement at [facility]
[2017-06-12] MEDS: HEPARIN 5000 UNIT/1 ML SUBCUT SCH ×3 (00:09→17:01)
[2017-06-12] MEDS: ASPIRIN 325 MG EC TABLET PO SCH (08:29)
[2017-06-12] MEDS: Multivitamin Tab 1 TAB PO SCH (08:29)
[2017-06-12] MEDS: Sodium Bicarbonate Tab 650 MG TAB PO SCH ×2 (08:29→20:48)
--- NOTE | 2017-06-12 12:50 | PDOC(PROG) ---
Interval History: No complaints doing well Objective : Data - Labs CBC and BMP: 06/11/17 06:05 06/11/17 06:05 Objective : Exam - General General Appearance: Cooperative - Respiratory Respiratory Exam: Clear to Auscultation - Bilaterally, Breathing Non Labored, Normal To Percussion, Normal to Percussion and Palpation - Cardiovascular Cardiovascular Exam: RRR, No Murmur, No Clicks, No Gallops, No Rubs, PMI Non- Displaced Assessment and Plan - Patient Problems (1) Renal failure Current Visit: Yes Status: Acute Comment: Resolved Code(s): N19 - Unspecified kidney failure (2) Weakness Current Visit: Yes Status: Acute Comment: Continue PTOT Code(s): R53.1 - Weakness (3) Hypertension Current Visit: Yes Status: Acute Comment: Stable Code(s): I10 - Essential (primary) hypertension (4) DVT prophylaxis Current Visit: Yes Status: Acute (5) Anemia Current Visit: Yes Status: Acute Comment: We'll need to hematology workup Code(s): D64.9 - Anemia, unspecified (6) Hypotension Current Visit: Yes Status: Resolved Code(s): I95.9 - Hypotension, unspecified
[2017-06-13] MEDS: HEPARIN 5000 UNIT/1 ML SUBCUT SCH ×3 (01:19→16:53)
[2017-06-13] MEDS: ASPIRIN 325 MG EC TABLET PO SCH (08:46)
[2017-06-13] MEDS: Multivitamin Tab 1 TAB PO SCH (08:46)
[2017-06-13] MEDS: Sodium Bicarbonate Tab 650 MG TAB PO SCH (08:46)
--- NOTE | 2017-06-13 11:13 | PT.PROG ---
Progress Note Progress Note: S. Patient stated that he is tired this morning but overall is feeling good. O. Patient ambulated 175 feet to the therapy gym where he used the nu-step x 8 minutes, then performed exercises in the form of; long arc quads, heel toe raises, marches, ball squeezes, clamshells, resisted knee flexion and sit to stands all x 15 bilaterally. Patient performed standing balance x 2 minutes then ambulated 175 feet back to his room where he was left in chair with alarm and call light. A. Patient tolerated therapy well. He was able to perform all exercises however continues to struggle with balance. He requires min assist with ambulation and transfers. He would continue to benefit from skilled therapy at this time. P. Continue POC.
--- NOTE | 2017-06-13 11:22 | PDOC(PROG) ---
Interval History: Patient doing well no complaints sitting in the chair no chest pain nausea or vomiting Objective : Data - Labs CBC and BMP: 06/11/17 06:05 06/11/17 06:05 Objective : Exam - Respiratory Respiratory Exam: Clear to Auscultation - Bilaterally, Breathing Non Labored, Normal To Percussion, Normal to Percussion and Palpation - Cardiovascular Cardiovascular Exam: RRR, No Murmur, No Clicks, No Gallops, No Rubs, PMI Non- Displaced Assessment and Plan - Patient Problems (1) Renal failure Current Visit: Yes Status: Acute Comment: Resolved we'll check labs Code(s): N19 - Unspecified kidney failure (2) Weakness Current Visit: Yes Status: Acute Comment: Continue PTOT awaiting placement Code(s): R53.1 - Weakness (3) Hypertension Current Visit: Yes Status: Acute Comment: Stable Code(s): I10 - Essential (primary) hypertension (4) DVT prophylaxis Current Visit: Yes Status: Acute (5) Anemia Current Visit: Yes Status: Acute Comment: We'll need hematology workup as an outpatient at present time patient is not interested in this Code(s): D64.9 - Anemia, unspecified (6) Hypotension Current Visit: Yes Status: Resolved Code(s): I95.9 - Hypotension, unspecified
--- NOTE | 2017-06-13 11:42 | OT AM DAY ---
Diagnosis : Weakness AM - Occupational Therapy S: The patient reports his left knee has been bothering him a little bit more. O: Today we worked on lower and upper extremity activities since it was the weekend. The patient worked on functional activities including dressing tasks. The patient required max assist for shoes and socks. He has an AFO on the right side which was difficult for him to put on independently. The patient went to the sink to complete hygiene activities with min assist for balance and use of rolling walker. The patient then ambulated with wheeled walker from his room down to therapy with min assist for balance. The patient has more difficulty with turning than going straight. Downstairs in therapy he performed therapeutic exercises including straight leg raises, short arc quads, hip abduction/adduction, quad sets, heel slides, bridges, sit ups with mod assist, cane exercises for bench press and shoulder flexion, red theraband resisted internal/external rotation, shoulder extension, rows, and biceps curls , mainly on the right side. On the left side we worked on elbow range of motion in flexion and extension. The patient did foam block for right hand strength. The patient came from supine to sit with min assist. He sat edge of bed and performed 5 sit to stands. The patient then ambulated back to his room. Once in room the patient performed lower extremity dressing with shorts. He was able to doff shorts with min assist and don shorts with mod assist. A: The patient still requires assistance with ADLs, overall strengthening, and balance. P: Continue seeing patient BID during the week and one time per day over the weekend for upper extremity strengthening, ADLs, and overall functional mobility. KASSANDRA
--- NOTE | 2017-06-13 12:36 | OT AM DAY ---
Diagnosis : Weakness AM - Occupational Therapy S: The patient reports no new changes. O: The patient required mod assist to dress lower extremities; he needed assistance to put shorts over feet and ankles. He was able to pull shorts to waist level but has difficulty pulling the right side to waist level. The patient was able to push sleeve up right arm, but needed 25% assistance with putting the t-shirt over his head and to pull down in the back. The patient required max assist to don right shoe and mod assist to don left shoe. The patient then ambulated from his room to therapy with a wheeled walker, approximately 200 feet. Downstairs in therapy we worked on dynamic balance activities including AirX x4 for 1-2 minutes each, trying to shift weight to the left and the right. The patient did lose his balance a few times and required max assist to keep balance with the AirX. The patient also worked on dynamic sitting balance by sitting on a dynadisc and working on reaching activities with his left upper extremity. We also worked on upper extremity strengthening with red theraband for shoulder extension, adduction, rows, internal/external rotation, and biceps curls. The patient performed seated marching, kick outs, and heel lifts x1 minute each followed by sit to stands x10 with min assist. The patient performed upper body ergometer x10 minutes. The patient then ambulated back to his room with contact guard to min assist for balance. A: At this time the patient participates very well. He is still having balance issues and has difficulty with ADLs including dressing activities. P: Continue seeing patient BID during the week and one time per day over the weekend for upper extremity strengthening, ADLs, and overall functional mobility. MTDD
--- NOTE | 2017-06-13 13:16 | OT.PROG ---
Progress Note Progress Note: S: pt states that he still believes he is going to live with his brother during the winter months. He stated he had a good weekend. O: pt was seen in his room and began by donning of shoes. He was unable to aubrie shoe Ind with AFO and was completed with Clay Maharaj. He did aubrie the L shoe Ind. He completed transfer to bathroom and completed toileting with mod Ind and hygiene at sink with cues. He then completed transfer approx 150 ft to therapy. He then completed UE exercises with RTB with LUE in rows, bicep flex, IROT/erot, shoulder ext x25 and with R affected side he only completed rows, shoulder ext, I/EROT x25 with RTb. PT took over treatment at this time. A: pt may continue to benefit from therapy to increase his activity tolerance and work on donning shoe with AFO. He walks well with walker but needs cues to stay inside walker. continues to be a fall risk. P: continue per POC.
--- NOTE | 2017-06-13 15:34 | PT.PROG ---
Progress Note Progress Note: S. Patient stated that he is feeling good this afternoon. O. Patient ambulated 175 feet to the therapy gym where he performed exercises in the form of; long arc quads, marches, clamshells, all with 4# and red thera band x 15. sit to stands x 7. Patient used the nu-step x 8 minutes then ambulated 175 feet back to his room where he was left in his chair with alarm and call light. A. Patient tolerated therapy well this afternoon. He continues to have balance deficits however is making gains with strength and mobility. He would continue to benefit from skilled therapy at this time. Recommend Swing bed for patient to continue strengthening and endurance. P. Continue POC.
[2017-06-13 16:08] VITALS: BP 109/66; RESP 17; TEMP 98; O2SAT 93
--- NOTE | 2017-06-13 16:37 | OT.PROG ---
Progress Note Progress Note: S: pt stated that he was feeling better this afternoon than he did this morning. O: pt was seen in his room. He completed functional transfer all the way downstairs to therapy approx 150 ft with no breaks using FWW and CGA for safety. He sat on arm bike and completed the first two minutes with B hands and needed no strap for R affected hand. He then needed a strap for R hand to complete the next 6 min on arm bike. He then transferred to mat table completing Ue exercises with GTB in all planes with L hand x20 and with R he completed rows, I/EROT, and shoulder ext x20. He was returned to his room by PT. A: pt may continue to benefit from therapy to increase activity tolerance and he has been transferring well with walker. P: continue per POC.
--- NOTE | 2017-06-13 17:16 | DCSUMMARY ---
Hospitalization Summary Hospital Course: Final Discharge Diagnosis: Current Visit Problems Problem Status Onset Code Altered mental status Acute R41.82 Dehydration Acute E86.0 Renal failure Acute N19 Weakness Acute R53.1 Hypertension Acute I10 DVT prophylaxis Acute Anemia Acute D64.9 Hypotension Resolved I95.9 Normal anion gap metabolic acidosis Acute E87.2 Diagnostic Data, Laboratory Data, and Procedures of Signifigance: History and Physical pertinent to Admission: Past Medical History Medical History: 1. 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 2. Adenocarcinoma the prostate with history of radiation therapy March 2008 followed up by androgen ablation treatment with Lupron then. 3. Hypertension Surgical History: 1. Carpal tunnel release Family History: Reviewed an Not Pertinent Past Social History: He said he smoked many years ago, doesn't drink, no drugs. Lives here in [place] friends help him and check on him. He gets Meals on Wheels. No children of his own. Tobacco Use: Never Smoker Course of Hospitalization: This very nice 72-year-old gentleman with past medical history of CVA with the right-sided weakness more than 20 years ago also has a history of prostate cancer status post radiation, hypertension he was admitted to the hospital is because he noted that he is getting a little weaker over the last 6 weeks. He also was found to have some acute renal failure. His renal failure was secondary to prerenal state with the patient was dehydrated and is now normal he had an MRI of his head and CT scan of his head which revealed no CVA patient continues to improve with PT and OT and is back to his baseline a little weaker obese will be transferred to swing bed for further PT and OT he has not needed his blood pressure medication that he takes at home which is lisinopril since his blood pressures have been okay in the hospital patient has no symptoms of dizziness vertigo nausea or vomiting On the date of discharge, the patient was examined: Gen.: No acute distress, alert, nontoxic Heart: Regular rate and rhythm, no murmurs, clicks, gallops, or rubs Lungs: Clear to auscultation bilaterally, breathing is nonlabored Abdomen/GI: Normal tones on auscultation, soft, nontender, nondistended Musculoskeletal/extremities: No clubbing, cyanosis, or edema Vitals reviewed and are listed below Vital Signs (24 hrs) Temp Pulse Resp BP Pulse Ox 06/13/17 16:07 98 F 60 17 109/66 93 06/13/17 11:09 98.4 F 65 18 106/67 92 06/13/17 06:38 98.2 F 54 L 17 109/66 91 06/13/17 04:39 97.8 F 56 L 20 120/73 92 06/13/17 04:12 97.4 F 58 L 20 113/67 91 06/12/17 21:00 98.3 F 62 24 120/70 92 06/12/17 19:05 17 Assessment and Plan: 1. As per discharge assessments above 2. Disposition: Swing bed 3. Condition on discharge, stable and improved. 4. Diet: regular diet 5. Activities: resume normal activities 6. Follow-Up: 1. PCP 2. 7. Medications at the Time of Discharge: Home Medications Medication Instructions Recorded Confirmed Type Aspirin/Caffeine [Anacin 400-32 Mg 2 ea PO 3-4XD #240 tab 09/05/15 06/06/17 History Tablet] Lisinopril 1 tab ORAL QD #90 tab 11/01/16 06/06/17 Rx 3 Generic Name Dose Route Start Last Admin Trade Name Freq PRN Reason Stop Dose Admin Aspirin 325 mg 06/07/17 09:00 06/13/17 08:46 Aspirin Ec PO 325 mg DAILY WERO Administration Heparin Sodium (Porcine) 5,000 unit 06/07/17 09:00 06/13/17 16:53 Heparin Inj SUBCUT 5,000 unit Q8H WERO Administration Lidocaine HCl 0.5 ml 06/06/17 22:40 Lidocaine Buffered Inj SUBD ONCE PRN IV Starts Multivitamins Therapeutic 1 tab 06/07/17 09:02 06/13/17 08:46 Thera Tab PO 1 tab DAILY WERO Administration Ondansetron HCl 4 mg 06/06/17 22:40 Zofran Inj IVP Q6H PRN NAUSEA / VOMITING Sodium Bicarbonate 650 mg 06/08/17 09:00 06/13/17 08:46 Sodium Bicarbonate PO 650 mg BID WERO Administration Sodium Chloride 5 - 20 ml 06/06/17 22:40 06/10/17 20:40 Saline Flush IVP 10 ml BID PRN Administration Flush 8. Time, care, counseling and coordination of care for this discharge is greater than 30 minutes. Exam - Vitals Vital Signs: Vital Signs Temperature 98 F Temperature Source Temporal Artery Scan Pulse Rate [Bilateral Radial] 60 Pulse Rate [Apical] 60 Pulse Rate [Pulse Oximeter] 60 Pulse Rate 54 Respiratory Rate 17 Blood Pressure [Left Arm] 109/66 Blood Pressure 86/50 Pulse Ox 93 Oxygen Delivery Method Room Air Height 5 ft 6 in Weight 147 lb Patient Problems - Patient Problem List (1) Renal failure Current Visit: Yes Status: Acute Code(s): N19 - Unspecified kidney failure Category: Medical (2) Weakness Current Visit: Yes Status: Acute Code(s): R53.1 - Weakness Category: Medical (3) Hypertension Current Visit: Yes Status: Acute Code(s): I10 - Essential (primary) hypertension Category: Medical (4) DVT prophylaxis Current Visit: Yes Status: Acute Category: Medical (5) Anemia Current Visit: Yes Status: Acute Code(s): D64.9 - Anemia, unspecified Category: Medical (6) Hypotension Current Visit: Yes Status: Resolved Code(s): I95.9 - Hypotension, unspecified Category: Medical
== END 2017-06-13 17:39 | disposition swing bed (61) | DRG 683 ==
LOC: ER 17:31 → MED/SURG 21:33
PROVIDERS: ADMIT Internal Medicine; ATTEND Internal Medicine